=== PATIENT | female | born 1970 | race Caucasian/White ===

== ENCOUNTER 2024-11-18 04:13 | Emergency (ER) | payer BC, SELFPAY ==
[2024-11-18 04:15] VITALS: BP 136/86
[2024-11-18 06:09] VITALS: BMI 33.5
[2024-11-18 06:14] VITALS: BP 131/85
[2024-11-18 06:16] VITALS: BP 131/85
[2024-11-18 07:00] VITALS: BP 113/88
--- NOTE | 2024-11-18 07:24 | ED.GENMED ---
History of Present Illness
General
Chief Complaint: Breathing Problem
Source: patient
Time Seen by Provider: 11/18/24 07:06
History of Present Illness
History of Present Illness:
54-year-old female with past medical history of Lenore's thyroiditis presenting to the emergency department for evaluation with approximately 10 days of feeling short of breath, cough, and that initially sinus congestion had relief with a steroid
taper and inhaler but states upon completion of the steroid taper symptoms returned and over the last 36 hours symptoms have seem to get worse. Patient states that midway through the duration of illness she also started feeling right-sided throat
discomfort and started to take a friend's leftover amoxicillin and reports that the sore throat has since been resolved. Patient does note she vapes nicotine multiple times daily as well as is a previous cigarette smoker. No known history of
asthma/COPD or pneumonia. No other concerns presently. She also denies any known sick contacts, fevers, chills, rigors.
Past History
Past History
ED Past Medical History: Hypothyroidism
ED Past Surgical History: None
Social History
Tobacco: Vaping
Alcohol: None
Drug: None
Personal:
Living: with family
Employment: Employed
Review of Systems
Review of Systems
All Other Systems: ROS reviewed and negative except as documented in HPI and ROS
Phy Exam
Physical Exam
Physical Exam:
GENERAL: Alert , in no apparent distress, persistent cough throughout the exam however in no acute respiratory distress
EYE: conjunctiva clear
NECK: Supple
ENT: o/p clr, mmm.
CARDIAC: Regular rate and rhythm
LUNGS: End phase expiratory wheeze within the left apical and mid lung field, no accessory muscle use, speaking full sentences, no rales or rhonchi
NEUROLOGICAL: Alert and oriented
SKIN: Warm and dry, skin intact.
MUSCULOSKELETAL: well perfused. No edema
PSYCH: Normal and appropriate interaction.
Scores
Heart Failure Risk
Heart Failure Risk Score: Not Applicable
Heart Score for Chest Pain Patients
STEMI patient?: Not applicable
Withdrawal Assessment of Alcohol
Withdrawal Assessment Completed?: Not applicable
Course
Orders/Labs/Results
Orders:
Orders
11/18/24 07:13
CR Chest - 2 Views Urgent
Comment:
Reason For Exam: cough, SOB, smoker
11/18/24 07:14
Albuterol Nebs [Ventolin Nebules] 2.5 mg INH R NOW STA
Ipratropium/Albuterol Sulfate [Duoneb] 3 ml INH R NOW ONE
Vital Signs
Initial and Last Documented VS:
Initial Vital Signs
Temp Pulse Resp BP Pulse Ox
97.9 F 100 20 136/86 100
11/18/24 04:15 11/18/24 04:15 11/18/24 04:15 11/18/24 04:15 11/18/24 04:15
Last Documented Vital Signs
Temp Pulse Resp BP Pulse Ox
97.9 F 100 20 119/72 99
11/18/24 04:15 11/18/24 04:15 11/18/24 04:15 11/18/24 08:00 11/18/24 09:01
MDM/Problems Addressed
Differential Diagnosis Includes:
Asthmatic bronchitis, pneumonia, viral syndrome, less concern for pulmonary embolism
MDM/Problems Addressed:
54-year-old female presenting to the emergency department for evaluation of shortness of breath and cough that have been ongoing for about 10 days. Initial improvement with steroid taper but symptoms restarted following completion of the taper.
Patient does note a significant nicotine/tobacco history which I suspect is a large component of patient's current. There is no evidence for hypoxia or acute respiratory distress. Given her wheezing will treat with a nebulizer here and obtain
chest x-ray. Disposition pending
Chronic conditions affecting care: Other (nicotine/tobacco use )
*Radiology
Radiology exam reviewed: preliminary read by ED provider (No acute infiltrates or effusions)
*Pulse Oximetry
Patient hypoxic: no
*[employer] Interpretation
Rate: normal
Rhythm: sinus
*Critical Care Note
Total Time (30-74mins, 75-104mins- exclusive of procedures): Not Applicable
Patient Management
Escalation/DeEscalation of care consider admission/obs:
Patient with significant improvement following nebulizer treatment. Chest x-ray is unremarkable for any acute pathologies. At this time we will discharge patient home with nebulizer as well as medication for the nebulizer. Patient will follow-up
with primary care provider
ED Attending Note
-
Portions of this chart may have been created with voice recognition software.� Occasional wrong word or��sound alike� substitutions may have occurred due to the inherent limitations of voice recognition software.
Discharge Plan
Departure
Patient Disposition: Home (Routine Discharge)
Date of Disposition: 11/18/24
Time of Disposition: 09:19
Patient with high blood pressure during this ER visit?: No
Discharge Problem:
Asthmatic bronchitis
Instructions: Acute Bronchitis, Adult (DC)
Prescriptions:
New
albuterol sulfate 2.5 mg /3 mL (0.083 %) solution for nebulization
2.5 mg inhalation Q6H Qty: 180 0RF
Referrals:
Ruddy Babcock MD [Family Provider] -
Interventions
Interventions:
*Risk Screen - Suicide Last Done: 11/18/24 04:15
*General Assessment Last Done: 11/18/24 06:09
*Neglect/Abuse Screening Last Done: 11/18/24 04:15
*ED- Fall Risk Assessment Last Done: 11/18/24 06:09
*ED COVID-19 Vaccine History Last Done: 11/18/24 06:09
*Nursing Disposition Last Done: 11/18/24 09:35
ED- Cardiac Assessment Last Done: 11/18/24 06:09
ED- Pulmonary Assessment Last Done: 11/18/24 06:09
Discharge Date and Time
Discharge Date/Time: 11/18/24 09:36
Print Language: DIVEHI
[2024-11-18] MEDS: DUONEB 3 ML INH (07:50)
[2024-11-18] MEDS: VENTOLIN NEBULES 2.5 MG INH (07:50)
[2024-11-18 08:00] VITALS: BP 119/72
== END 2024-11-18 09:36 | disposition home or self-care (01) ==
LOC: EMR 04:13
PROVIDERS: EMERGENCY PHYSICIAN Emergency Medicine; FAMILY PHYSICIAN Internal Medicine
DX: J45.909 Unspecified asthma, uncomplicated (principal); E03.9 Hypothyroidism, unspecified; F17.290 Nicotine dependence, other tobacco product, uncomplicated
CPT/HCPCS: 94640; 99283; 71046